=== PATIENT | female | born 1935 | race Caucasian/White ===

== ENCOUNTER 2017-01-15 13:40 | Outpatient (CLI) | payer MEDICARE, BC ==
--- NOTE | 2017-01-15 16:38 | ULT ---
BILATERAL RENAL ULTRASOUND: 01/15/17 HISTORY: 81-year-old female with left sided flank pain. FINDINGS: The right kidney measures 10.1 cm and the left kidney measures 9.8 cm in length. No focal mass or hy dronephrosis seen on either side. No shadowing calculi are identified. Cortical thickness and echoge nicity is normal. The urinary bladder is empty. IMPRESSION: Unremarkable exam. POS: [facility]
== END 2017-01-15 13:41 | disposition home or self-care (01) ==
LOC: SCSULT 13:40
PROVIDERS: ATTEND Urology
DX: R10.9 Unspecified abdominal pain (principal)
CPT/HCPCS: 76770

== ENCOUNTER 2017-11-24 14:47 | Outpatient (CLI) | payer MEDICARE, BC ==
--- NOTE | 2017-11-24 15:24 | MMO ---
BILATERAL SCREENING MAMMOGRAM: HISTORY: An 82-year-old female for screening mammography. COMPARISON: 11/20/16, 11/20/15, 11/09/14. FINDINGS: Bilateral MLO and CC views of the breasts show scattered fibroglandular breast tissue. Vascular calc ifications are seen. Benign-appearing calcifications are seen in the left breast. There is no evide nce of suspicious mass, suspicious clustered microcalcifications, or area of architectural distortion . Interpretation of this mammogram is performed with the assistance of computer-aided detection. IMPRESSION: BI-RADS category 2 - benign findings. Annual screening mammography is recommended. BIRADS 2: Benign Finding(s) Routine annual screening mammography (for women over age 40) POS: [facility]
== END 2017-11-24 14:48 | disposition home or self-care (01) ==
LOC: SCSMAMMO 14:47
PROVIDERS: ATTEND Family Medicine
DX: Z12.31 Encounter for screening mammogram for malignant neoplasm of breast (principal)
CPT/HCPCS: 77067

== ENCOUNTER 2018-04-02 05:54 | Day surgery (SDC) | payer MEDICARE, BC ==
[2018-04-01 14:26] VITALS: BMI 27.2
[2018-04-02] MEDS ORDERED: CEFAZOLIN 2 GM/50 ML BAG ONE (06:08)
[2018-04-02] MEDS ORDERED: Fentanyl 100 MCG/2 ML VIAL ONE (06:32)
[2018-04-02 06:36] LABS: #Basophils 0.1 thou/uL (0.0-0.2); #Eosinphils 0.1 thou/uL (0.0-0.7); #Monocytes 0.7 thou/uL (0.11-0.59); #Neutrophils 2.4 thou/uL (1.40-6.50); %Eosinophils 1.1 % (0.0-10.0); %Lymphocytes 38.2 % (21.0-51.0); %Monocytes 13.7 % (0.0-10.0); Hemoglobin 13.9 g/dL (12.0-16.0); Mean Corpuscular HGB CONC 33.2 g/dL (32.0-36.0); Mean Corpuscular Hemoglobin 30.5 pg (27.0-31.0); Mean Corpuscular Volume 91.9 fL (78.0-98.0); Mean Platelet Volume 6.5 fL (7.4-10.4); Platelet Count 265 thou/uL (130-400); RBC Distribution Width 11.9 % (11.5-14.5); Red Blood Cell (RBC) Count 4.56 mill/uL (4.20-5.40); White Blood Cell (WBC) Count 5.2 thou/uL (4.8-10.8)
[2018-04-02] MEDS ORDERED: Bacitracin Zinc Ointment 30 gm TUBE ONE (06:37)
[2018-04-02] MEDS ORDERED: Bupivacaine PF 0.5% 30 ML VIAL ONE (06:37)
[2018-04-02] MEDS ORDERED: Betamet Acet/Betamet Na Ph 30 MG/5 ML VIAL ONE (06:37)
[2018-04-02] MEDS ORDERED: Ketorolac Tromethamine 30 MG/ML VIAL ONE (08:40)
[2018-04-02] MEDS ORDERED: Ondansetron PF 4 MG/2 ML Vial ONE (10:55)
[2018-04-02] MEDS ORDERED: Lidocaine 1% PF 5 ML VIAL ONE (10:55)
[2018-04-02] MEDS ORDERED: Dexamethasone 20 MG/5 ML VIAL ONE (10:55)
[2018-04-02] MEDS ORDERED: Metoclopramide HCl 10 MG/2 ML VIAL ONE (10:55)
[2018-04-02] MEDS ORDERED: PROPOFOL 200 MG/20 ML VIAL ONE (10:55)
--- NOTE | 2018-04-02 14:14 | OP ---
DATE OF PROCEDURE: 04/02/2018 PREOPERATIVE DIAGNOSIS: Right carpal tunnel syndrome. POSTOPERATIVE DIAGNOSIS: Right carpal tunnel syndrome. FINDINGS: Very tight transverse carpal ligament with stippling and early hourglass formation over 1 cm area in the center of the transverse carpal ligament/carpal tunnel. ANESTHESIA: Ethiopian anesthesia, conscious sedation propofol with a total of 18 mL of 0.5% Marcaine block. PROCEDURE PERFORMED: Celestone injection, carpal tunnel, 3 mL. INDICATION: Failed conservative treatment with electrodiagnostic clinical and historical findings of carpal tunnel syndrome, right upper extremity. DESCRIPTION OF PROCEDURE: After successful anesthesia as listed above, we waited 10 minutes for the block to take effect, and then she was prepped and draped. Limb was exsanguinated after a time-out was done appropriately. Tourniquet inflated to 250 mmHg pressure. We then outlined incision beginning as far distal as Nelson's cardinal line for approximately 5 mm distal to the volar wrist flexion crease in line with the ring finger. We carried this through skin and subcutaneous tissue, identified the palmaris longus and on its ulnar half, entered the transverse carpal ligament with [place] blade. At the midportion distally, first we released it, there was no abnormality seen in terms of masses and then from the midportion proximally with combination of [place] blade and a tenotomy scissor, we released the transcarpal ligament. Here, we found an area approximately 1 to 1.5 cm of stippling with early hourglass formation. No masses were seen and there was no flexor tenosynovitis. We then placed 3 mL of Celestone in the wound, obtained hemostasis with tourniquet deflation, closed the incision with interrupted 4-0 nylon in mattress pattern. A bulky dressing was applied, and the patient left the operating room without evidence of anesthetic or operative complication. Job ID: [id number]
== END 2018-04-02 09:15 | disposition home or self-care (01) ==
LOC: SDC 05:54
PROVIDERS: ATTEND Orthopaedic Surgery Hand Surgery
PROC: 01N50ZZ Release Median Nerve, Open Approach (ICD-10-PCS; principal; 2018-04-02)
DX: G56.01 Carpal tunnel syndrome, right upper limb (principal); Z90.710 Acquired absence of both cervix and uterus; Z90.722 Acquired absence of ovaries, bilateral; Z98.890 Other specified postprocedural states
CPT/HCPCS: 36415; 85025; J0702; J1100; J1885; J2001; J2405; J2704; J2765; J3010; S0020

== ENCOUNTER 2019-12-14 12:13 | Outpatient (CLI) | payer MEDICARE, BC ==
--- NOTE | 2019-12-14 14:39 | ULT ---
THYROID ULTRASOUND: 12/14/19 INDICATIONS: Enlarged thyroid. FINDINGS: The right thyroid lobe measures 3.6 x 1.6 x 1.6 cm. Left thyroid lobe measures 4.5 x 2.9 x 3.6 cm. Th yroid isthmus measures 0.38 cm. There is a large mixed cystic and solid hypoechoic nodule seen within the left mid thyroid lobe measu ring 3.9 x 2.7 x 3.2 cm. There are small comet tail type artifacts seen within the central aspect of the lesion. Findings are consistent with TI-RADS 3 lesion. There is a lobulated cystic lesion involving the mid right thyroid lobe measuring 1.3 cm consistent w ith a small TI-RADS 3 lesion. There is an isoechoic oval lesion involving the lower pole of the right lower lobe measuring 1.1 cm consistent with small TI-RADS 3 lesion. IMPRESSION: 1. Large predominantly cystic and solid nodule involving the left thyroid lobe with some interna l comet tail artifacts has characteristics of a TI-RADS 3 lesion. Would recommend FNA sampling of thi s abnormality for further characterization. 2. Small TI-RADS 3 lesions of the right thyroid lobe. No additional follow-up is recommended. POS: [facility]
== END 2019-12-14 12:14 | disposition home or self-care (01) ==
LOC: BICULT 12:13
PROVIDERS: ATTEND Physician Assistant Medical
DX: E04.1 Nontoxic single thyroid nodule (principal); E07.89 Other specified disorders of thyroid
CPT/HCPCS: 76536